=== PATIENT | female | born 1990 | race American Indian/Alaskan Native ===

== ENCOUNTER 2022-08-28 19:25 | Emergency (ER) | payer MEDICAID ==
[2022-08-28] MEDS ORDERED: ACETAMINOPHEN 500 MG TAB PO ONE (20:10)
[2022-08-28] MEDS ORDERED: AMOXICILLIN/K CLAV 875/125MG TAB PO ONE (23:45)
[2022-08-28] MEDS ORDERED: IBUPROFEN 800 MG TAB PO ONE (23:45)
[2022-08-28] MEDS ORDERED: predniSONE 20 MG TAB PO ONE (23:45)
--- NOTE | 2022-08-29 00:04 | Emergency Department Report ---
ED General Adult HPI - General Chief complaint: Fever Stated complaint: THROAT SORE,FEVER,CHILLS Time Seen by Provider: 08/28/22 23:45 Source: patient Mode of arrival: Ambulatory Limitations: No Limitations - History of Present Illness Initial comments: Patient 32-year-old female who presents for sore throat and fever x3 days. Patient states other family member diagnosed with strep throat with similar symptoms. No T-max noted at home fever noted in triage today at 102.9 Fahrenheit oral. Patient states pain with swallowing described as burning, alvaro landry is tolerating p.o. intake hour. Symptoms are exacerbated by swallowing. Symptoms are relieved by nothing tried. Severity scale (0 -10): 7 - Related Data Previous Rx's Medication Instructions Recorded Last Taken Type Amoxicillin/K Clav Tab [Augmentin 1 tab PO BID 7 Days #14 tab 08/29/22 Unknown Rx 875 mg] Dextrometh/Benzocaine/Menthol 1 each PO Q2H PRN #20 lozenge 08/29/22 Unknown Rx [Chloraseptic Total Lozenge] Ibuprofen [Motrin 800 MG tab] 800 mg PO Q8HR PRN #30 tablet 08/29/22 Unknown Rx predniSONE [Deltasone] 20 mg PO DAILY 5 Days #5 tab 08/29/22 Unknown Rx Allergies Allergy/AdvReac Type Severity Reaction Status Date / Time No Known Allergies Allergy Verified 08/28/22 23:49 ED Review of Systems ROS: Stated complaint: THROAT SORE,FEVER,CHILLS Other details as noted in HPI Constitutional: chills, fever, malaise Eyes: denies: eye pain, eye discharge, vision change ENT: throat pain, congestion. denies: ear pain Respiratory: cough. denies: SOB with exertion, wheezing Cardiovascular: denies: chest pain, palpitations Endocrine: no symptoms reported Gastrointestinal: denies: abdominal pain, nausea, diarrhea Genitourinary: denies: urgency, dysuria, discharge Musculoskeletal: denies: back pain, joint swelling, arthralgia Skin: denies: rash, lesions Neurological: denies: headache, weakness, paresthesias Psychiatric: denies: anxiety, depression Hematological/Lymphatic: denies: easy bleeding, easy bruising ED Past Medical Hx - Medications Home Medications: Home Medications Medication Instructions Recorded Confirmed Last Taken Type Amoxicillin/K Clav Tab [Augmentin 1 tab PO BID 7 Days #14 tab 08/29/22 Unknown Rx 875 mg] Dextrometh/Benzocaine/Menthol 1 each PO Q2H PRN #20 lozenge 08/29/22 Unknown Rx [Chloraseptic Total Lozenge] Ibuprofen [Motrin 800 MG tab] 800 mg PO Q8HR PRN #30 tablet 08/29/22 Unknown Rx predniSONE [Deltasone] 20 mg PO DAILY 5 Days #5 tab 08/29/22 Unknown Rx ED Physical Exam - General Limitations: No Limitations General appearance: alert, in no apparent distress - Head Head exam: Present: normocephalic, normal inspection - Eye Eye exam: Present: PERRL, EOMI. Absent: conjunctival injection, nystagmus Pupils: Present: normal accommodation - ENT ENT exam: Present: mucous membranes moist, TM's normal bilaterally, normal external ear exam - Expanded ENT Exam Expanded Throat exam: Positive: tonsillar erythema, tonsillomegaly, tonsillar exudate, other (Uvula midline no lesions no stridor noted tonsillar exudate no peritonsillar abscess however no muffled voice patient is tolerating p.o. intake. Airway is patent). Negative: R peritonsillar mass, L peritonsillar mass - Neck Neck exam: Present: normal inspection, tenderness, full ROM, lymphadenopathy (Anterior cervical). Absent: thyromegaly - Respiratory Respiratory exam: Present: normal lung sounds bilaterally. Absent: respiratory distress, wheezes, stridor, chest wall tenderness - Cardiovascular Cardiovascular Exam: Present: regular rate, normal rhythm, normal heart sounds. Absent: systolic murmur, diastolic murmur, rubs, gallop - GI/Abdominal GI/Abdominal exam: Present: soft, normal bowel sounds. Absent: distended, tenderness - Rectal Rectal exam: Present: deferred - Extremities Exam Extremities exam: Present: normal inspection, full ROM, normal capillary refill - Back Exam Back exam: Present: normal inspection, full ROM. Absent: CVA tenderness (R), CVA tenderness (L) - Neurological Exam Neurological exam: Present: alert, oriented X3, CN II-XII intact, normal gait - Expanded Neurological Exam Expanded Patient oriented to: Present: person, place, time Speech: Present: fluid speech Cranial nerves: Gag Reflex: Normal, Tongue Deviation: Normal Motor strength exam: RUE: 5, LUE: 5, RLE: 5, LLE: 5 Best Eye Response ([place]): (4) open spontaneously Best Motor Response ([place]): (6) obeys commands Best Verbal Response ([place]): (5) oriented [place] Total: 15 - Psychiatric Psychiatric exam: Present: normal affect, normal mood - Skin Skin exam: Present: warm, dry, intact, normal color. Absent: rash ED Course Vital Signs 08/28/22 19:50 Temperature 102.9 F H Pulse Rate 100 H Respiratory 20 Rate Blood Pressure 132/81 [Right] O2 Sat by Pulse 100 Oximetry ED Medical Decision Making - Medical Decision Making Noted tonsillar exudate erythema voice is normal no stridor airways patent there is no wheezing plan DC home, with prescriptions, follow-up primary care doctor in 2 to 3 days follow-up with ENT if symptoms not improving in 2 to 3 days. Patient verbalized agreement and understanding of discharge plan. Patient DC'd home in stable condition at this time. Critical care attestation.: If time is entered above; I have spent that time in minutes in the direct care of this critically ill patient, excluding procedure time. ED Disposition Clinical Impression: Acute bacterial tonsillitis Disposition: HOME / SELF CARE / HOMELESS Is pt being admited?: No Does the pt Need Aspirin: No Condition: Stable Instructions: Tonsillitis, Phtf-hm-Sjoy Additional Instructions: Take medications as prescribed, continue to hydrate. Follow-up with your doctor in 2 to 3 days. Follow-up with ENT if symptoms not improved in 2 to 3 days. Turn to emergency department should symptoms worsen. Prescriptions: Amoxicillin/K Clav Tab [Augmentin 875 mg] 1 tab PO BID 7 Days #14 tab Dextrometh/Benzocaine/Menthol [Chloraseptic Total Lozenge] 1 each PO Q2H PRN #20 lozenge PRN Reason: Throat Pain predniSONE [Deltasone] 20 mg PO DAILY 5 Days #5 tab Ibuprofen [Motrin 800 MG tab] 800 mg PO Q8HR PRN #30 tablet PRN Reason: pain fever Referrals: JEREMY SANTIAGO MD [Staff Physician] - 3-5 Days PETER TAFOYA MD [Referring] - 3-5 Days Forms: Work/School Release Form(ED) Time of Disposition: 00:07
[2022-08-29 00:15] VITALS: BP 137/83
== END 2022-08-29 00:15 | disposition home or self-care (01) ==
LOC: ED 19:25
DX: J03.90 Acute tonsillitis, unspecified (principal)
CPT/HCPCS: 99282